=== PATIENT | female | born 1995 | race Caucasian/White ===

== ENCOUNTER 2018-02-16 19:28 | Emergency (ER) | payer OTHER ==
[~2018-02-16] VITALS: Ht 162.6 cm; Wt 63.5 kg
[2018-02-16 19:37] VITALS: BP 117/78
[2018-02-16] MEDS ORDERED: IBU800 MG PO (20:55)
[2018-02-16] MEDS ORDERED: FLEXERIL PO (20:55)
== END 2018-02-16 21:06 | disposition home or self-care (01) ==
LOC: M.ERS 19:28
DX: S20.212A Contusion of left front wall of thorax, initial encounter (principal); S20.211A Contusion of right front wall of thorax, initial encounter; V89.2XXA Person injured in unspecified motor-vehicle accident, traffic, initial encounter; Y93.89 Activity, other specified; Y92.89 Other specified places as the place of occurrence of the external cause; Y99.8 Other external cause status